=== PATIENT | female | born 1995 | race American Indian/Alaskan Native ===

== ENCOUNTER 2019-04-13 20:47 | Emergency (ER) | payer SELFPAY ==
[2019-04-13 20:51] VITALS: BP 136/79
== END 2019-04-13 23:00 | disposition left against medical advice (07) ==
LOC: ED 20:47
DX: T78.40XA Allergy, unspecified, initial encounter (principal); Y92.9 Unspecified place or not applicable; Z53.21 Procedure and treatment not carried out due to patient leaving prior to being seen by health care provider